=== PATIENT | female | born 1955 | race Caucasian/White ===

== ENCOUNTER 2017-10-19 16:57 | Emergency (ER) | payer OTHER ==
[~2017-10-19] VITALS: Ht 165.1 cm; Wt 90.0 kg
[2017-10-19 17:00] VITALS: Ht 165.1 cm; Wt 90.0 kg
[2017-10-19] MEDS ORDERED: SOD CHLORIDE 0.9% 1,000 ML IV STA (21:33)
[2017-10-19] MEDS ORDERED: morphine 4 MG/ML VIAL IV STA (21:33)
[2017-10-19] MEDS ORDERED: ONDANSETRON 4 MG INJ IV STA (21:33)
[2017-10-19 21:51] LABS: BASOPHIL # 0.1 10^3/ul (0.0-0.1); BASOPHILS % 1.1 % (0.0-2.0); EOSINOPHILS # 0.1 10^3/ul (0.0-0.5); EOSINOPHILS % 0.8 % (0.0-7.0); HEMOGLOBIN 16.2 g/dl (12.0-16.0); LYMPHOCYTES # 2.7 10^3/ul (0.8-2.9); LYMPHOCYTES % 36.7 % (15.0-51.0); MEAN CORPUSCULAR HEMOGLOBIN 28.6 pg (29.0-33.0); MEAN CORPUSCULAR HGB CONC 34.5 g/dl (32.0-37.0); MEAN CORPUSCULAR VOLUME 82.9 fl (82.0-101.0); MEAN PLATELET VOLUME 10.6 fl (7.4-10.4); MONOCYTE # 0.9 10^3/ul (0.3-0.9); MONOCYTES % 12.7 % (0.0-11.0); NEUTROPHIL # 3.5 10^3/ul (1.6-7.5); PLATELET COUNT 228 10^3/UL (140-415); RED BLOOD COUNT 5.67 10^6/ul (4.20-5.40); RED CELL DISTRIBUTION WIDTH 12.5 % (11.5-14.5); WHITE BLOOD COUNT 7.2 10^3/ul (4.8-10.8)
[2017-10-19 22:02] LABS: ADD UMIC YES; UR ASCORBIC ACID NEGATIVE (NEGATIVE); UR BACTERIA FEW /HPF (NONE SEEN); UR BILIRUBIN (Dip) NEGATIVE (NEGATIVE); UR BLOOD (Dip) 1+ mg/dL (NEGATIVE); UR CLARITY SLIGHTLY CLOUDY (CLEAR); UR COLOR YELLOW (YELLOW); UR GLUCOSE (Dip) 3+ mg/dL (NEGATIVE); UR KETONES (Dip) NEGATIVE (NEGATIVE); UR LEUKOCYTE ESTERASE (Dip) 1+ Leu/ul (NEGATIVE); UR NITRITE (Dip) NEGATIVE (NEGATIVE); UR RBC 6 /HPF (0-5); UR SPECIFIC GRAVITY (Dip) 1.029 (1.003-1.030); UR SQUAMOUS EPITHELIAL CELL FEW /HPF (FEW); UR TOTAL PROTEIN (Dip) 3+ mg/dl (NEGATIVE); UR UROBILINOGEN (Dip) NEGATIVE (NEGATIVE)
[2017-10-19 22:19] VITALS: TEMP 98.7
--- NOTE | 2017-10-19 22:32 | RADRPT ---
PROCEDURE: CT Abdomen and Pelvis without contrast. CLINICAL INDICATION: Right lower quadrant abdominal pain. TECHNIQUE: A CT scan of the abdomen and pelvis was performed without intravenous contrast. Sawyer l and sagittal reformatted images were generated. DICOM images are available. Images were reviewed o n a high-resolution PACS workstation. CTDIvol: 22.15 mGy. DLP: 1312.33 mGy-cm. One or more of the following dose reduction techniques were used: - Automated exposure control. - Adjustment of the mA and/or kV according to patient size. - Use of iterative reconstruction technique. COMPARISON: None. FINDINGS: The lung bases are clear. Evaluation of the abdominal and pelvic viscera is limited by the lack of oral and intravenous contra st. The liver is enlarged (22.0 cm) and diffusely hypodense, consistent with fatty infiltration. The ga llbladder is normal in appearance. The common bile duct is not dilated. The spleen is not enlarged. No pancreatic lesion is identified and there is no pancreatic ductal dilatation. There is a 1.9 cm r ight adrenal adenoma. The left adrenal gland is unremarkable. The kidneys are normal in size. There is mild symmetric perinephric fat stranding, probably age-rela adore. No hydronephrosis is seen. No urinary stone is identified. The small and large bowel are normal in caliber. There is no bowel wall thickening. A 4.2 x 4.7 cm c m lipoma is identified in the mid sigmoid colon. The appendix is normal. The urinary bladder is unremarkable. There are multiple calcified uterine fibroids. There is no adne xal mass. No lymphadenopathy is identified. There is no ascites. No pneumoperitoneum is seen. There are minima l arterial calcifications. No suspicious osseous lesion is idenitified. IMPRESSION: 1. No inflammation or lymphadenopathy. 2. No obstructive uropathy or urinary stone. 3. Normal appendix. 4. Hepatomegaly and fatty infiltration of the liver. 5. 1.9 cm right adrenal adenoma. 6. 4.7 cm lipoma in the mid sigmoid colon. 7. Multiple calcified uterine fibroids. RPTAT: HTAR .Cruz Lauren MD, MD Date Time Electronically viewed and signed by .Cruz Lauren MD, on 10/19/2017 22:32 .R/
[2017-10-19 22:33] LABS: ALBUMIN 3.8 g/dl (3.3-4.9); BILIRUBIN,INDIRECT 0.1 mg/dl (0-1.1); BILIRUBIN,TOTAL 0.1 mg/dl (0.2-1.3); CALCIUM 9.4 mg/dl (8.4-10.2); CREATININE 0.71 mg/dl (0.44-1.00); POTASSIUM 3.9 mmol/L (3.5-5.1); TOTAL PROTEIN 7.6 g/dl (6.1-8.1)
[2017-10-19] MEDS ORDERED: IBUP-1542 PO (23:04)
[2017-10-19] MEDS ORDERED: METF500T4 PO (23:04)
[2017-10-19] MEDS ORDERED: CEFTRIAXONE 1 GM/50 ML (PMX) 50 ML IVPB ONE ×2 (23:22→23:30)
[2017-10-19] MEDS ORDERED: SOD CHLORIDE 0.9% 1,000 ML IV ONE (23:30)
[2017-10-20] MEDS ORDERED: CIPR500T4 PO (01:08)
[2017-10-20] MEDS ORDERED: NITR-58 PO (01:08)
[2017-10-20] MEDS ORDERED: NAPR-688 PO (01:09)
[2017-10-20] MEDS ORDERED: ONDA4TAB11 PO (01:09)
[2017-10-20] MEDS ORDERED: HYDR-906 PO (01:09)
[2017-10-20] MEDS ORDERED: POLY17PO6 PO (01:17)
--- NOTE | 2017-10-20 01:17 | ERD ---
ER Documentation Chief Complaint Chief Complaint AP X 3 DAYS ROS All systems reviewed and are negative except as per history of present illness. Medications Home Meds Active Scripts Ondansetron (Zofran Odt) 4 Mg Tab.rapdis, 4 MG PO Q6 for NAUSEA AND/OR VOMITING , #10 Prov:TING NUNN DO 10/20/17 Hydrocodone/Acetaminophen (Alden 5-325 Tablet) 1 Each Tablet, 1 EACH PO Q6 for SEVERE PAIN LEVEL 7-10, #14 TAB Prov:TING NUNN DO 10/20/17 Naproxen* (Naproxen*) 500 Mg Tablet, 500 MG PO BID, #20 TAB Prov:TING NUNN DO 10/20/17 Nitrofurantoin Monohyd Macrocr* (Macrobid*) 100 Mg Capsr, 100 MG PO BID for 3 Days, CAP Prov:TING NUNN DO 10/20/17 Ciprofloxacin Hcl* (Ciprofloxacin Hcl*) 500 Mg Tablet, 500 MG PO BID for 7 Days , TAB Prov:TING NUNN 10/20/17 Reported Medications Ibuprofen* (Ibuprofen*) 600 Mg Tablet, 600 MG PO Q6, TAB 10/19/17 Metformin* (Glucophage*) 500 Mg Tab, 500 MG PO WITH BREAKFAST DINNE, #30 TAB 10/19/17 Allergies Allergies: Coded Allergies: No Known Allergy (Unverified , 10/19/17) PMhx/Soc History of Surgery: Yes ( section) Hx Cardiac Disorders: Yes (HTN) Hx Miscellaneous Medical Probl: Yes (high cholesterol, DMII) Hx Alcohol Use: No Hx Substance Use: No Hx Tobacco Use: No Smoking Status: Never smoker Physical Exam Vitals Vital Signs Date Time Temp Pulse Resp B/P Pulse Ox O2 Delivery O2 Flow Rate FiO2 10/19/17 22:19 98.7 84 20 187/86 98 Room Air 10/19/17 17:00 100.0 98 20 178/98 99 Physical Exam Const: [] Head: Atraumatic Eyes: Normal Conjunctiva ENT: Normal External Ears, Nose and Mouth. Neck: Full range of motion..~ No meningismus. Resp: Clear to auscultation bilaterally Cardio: Regular rate and rhythm, no murmurs Abd: Soft, non tender, non distended. Normal bowel sounds Skin: No petechiae or rashes Back: No midline or flank tenderness Ext: No cyanosis, or edema Neur: Awake and alert Psych: Normal Mood and Affect Result Diagram: 10/19/17209910/19/17 2100 Results 24 hrs Laboratory Tests Test 10/19/17 21:00 10/19/17 21:06 10/19/17 21:30 10/20/17 00:46 White Blood Count 7.210^3/ul Red Blood Count 5.6710^6/ul Hemoglobin 16.2g/dl Hematocrit 47.0% Mean Corpuscular Volume 82.9fl Mean Corpuscular Hemoglobin 28.6pg Mean Corpuscular Hemoglobin Concent 34.5g/dl Red Cell Distribution Width 12.5% Platelet Count 88442^3/UL Mean Platelet Volume 10.6fl Neutrophils % 48.0% Lymphocytes % 36.7% Monocytes % 12.7% Eosinophils % 0.8% Basophils % 1.1% Nucleated Red Blood Cells % 0.0/100WBC Neutrophils # 3.510^3/ul Lymphocytes # 2.710^3/ul Monocytes # 0.910^3/ul Eosinophils # 0.110^3/ul Basophils # 0.110^3/ul Nucleated Red Blood Cells # 0.010^3/ul Sodium Level 133mmol/L Potassium Level 3.9mmol/L Chloride Level 92mmol/L Carbon Dioxide Level 32mmol/L Anion Gap 13 Blood Urea Nitrogen 12mg/dl Creatinine 0.71mg/dl Glucose Level 373mg/dl Calcium Level 9.4mg/dl Total Bilirubin 0.1mg/dl Direct Bilirubin 0.00mg/dl Indirect Bilirubin 0.1mg/dl Aspartate Amino Transf (AST/SGOT) 27IU/L Alanine Aminotransferase (ALT/SGPT) 42IU/L Alkaline Phosphatase 77IU/L Total Protein 7.6g/dl Albumin 3.8g/dl Globulin 3.80g/dl Albumin/Globulin Ratio 1.00 Lipase 143U/L Bedside Glucose 329mg/dL 268mg/dL Urine Color YELLOW Urine Clarity SLIGHTLY CLOUDY Urine pH 6.0 Urine Specific [place] 1.029 Urine Ketones NEGATIVEmg/dL Urine Nitrite NEGATIVEmg/dL Urine Bilirubin NEGATIVEmg/dL Urine Urobilinogen NEGATIVEmg/dL Urine Leukocyte Esterase 1+Jennifer/ul Urine Microscopic RBC 6/HPF Urine Microscopic WBC 21/HPF Urine Squamous Epithelial Cells FEW/HPF Urine Bacteria FEW/HPF Urine Hemoglobin 1+mg/dL Urine Glucose 3+mg/dL Urine Total Protein 3+mg/dl Current Medications Medications (Trade) Dose Ordered Sig/Rita Route PRN Reason Start Time Stop Time Status Last Admin Dose Admin Sodium Chloride (NS) 1,000 ml @ 1,000 mls/hr Q1H STAT IV 10/19/17 21:33 10/19/17 22:32 DC 10/19/17 21:45 Morphine Sulfate (morphine) 4 mg ONCE STAT IV 10/19/17 21:33 10/19/17 21:34 DC 10/19/17 21:44 Ondansetron HCl 4 mg 4 mg ONCE STAT IV 10/19/17 21:33 10/19/17 21:34 DC 10/19/17 21:44 Ceftriaxone Sodium 50 ml @ 100 mls/hr ONCE ONCE IVPB 10/19/17 23:30 10/19/17 23:59 DC 10/19/17 23:49 Sodium Chloride 1,000 ml @ 1,000 mls/hr Q1H ONCE IV 10/19/17 23:30 10/20/17 00:29 DC 10/19/17 23:48 Ceftriaxone Sodium (Rocephin) 50 ml @ ud STK-MED ONCE IVPB 10/19/17 23:22 10/19/17 23:23 DC Procedures/MDM This 62-year-old female presents for lower abdominal pain worse in the right lower quadrant going on for the last 2 days. She woke up this morning and vomited and she has had nausea all day. Denies any vaginal symptoms. Does have diabetes which is usually controlled at home although sugars approaching 200 abnormal for her. Pain is likely secondary to urinary tract infection as well as uterine fibroids. Patient does not have pain in the distribution of her fatty liver. Has hyperglycemia likely accelerated secondary to traction. She was given a gram of Rocephin emergency room she was given 2 L of IV fluid after which her sugar was decreased without any insulin. She states that she would like to go home and that that sugar can be controlled with her home medicines no problems she does not want to stay in the hospital. She also has bilateral foot pain that she mentioned prior to discharge. Performed and examined this is consistent with plantar fasciitis. Omitted discharge her with naproxen as well as Alden for severe pain giving her Cipro and Macrobid for complicated UTI. Also states that she has constipation from time to time and I will give her some MiraLAX. Primary care follow-up in next couple of days with instructions to obtain a referral for a attending physician and possibly parking officer for her fibroids. CT abdomen pelvis interpretation: No appendicitis, fatty liver, uterine fibroids , no obstruction or free air, no fractures. Departure Diagnosis: Primary Impression: Fibroid, uterine Additional Impressions: Plantar fasciitis, bilateral UTI (urinary tract infection) Abdominal pain Fatty liver Hyperglycemia Condition: Stable Patient Instructions: Non-Alcoholic Fatty Liver Disease (NAFLD), Understanding Urinary Tract Infections (UTIs), Constipation (Adult), Plantar Fasciitis, Uterine Fibroids Additional Instructions: Call your primary care doctor TOMORROW for an appointment during the next 2-3 days. Get a referral for a attending physician in the next week. Alos you may want to see a parking officer about FIBROIDS. See the doctor sooner or return here if your condition worsens before your appointment time. TING NUNN DO Oct 20, 2017 01:17
[2017-10-20 01:25] VITALS: BP 176/84; PULSE 85; RESP 20
== END 2017-10-20 01:26 | disposition home or self-care (01) ==
LOC: E/R 16:57
DX: D25.9 Leiomyoma of uterus, unspecified (principal); M72.2 Plantar fascial fibromatosis; N39.0 Urinary tract infection, site not specified; K76.0 Fatty (change of) liver, not elsewhere classified; E11.65 Type 2 diabetes mellitus with hyperglycemia; I10 Essential (primary) hypertension; Z79.84 Long term (current) use of oral hypoglycemic drugs
CPT/HCPCS: 36415; 74176; 80053; 81001; 82962; 83690; 85025; 96374; 96375; J0696; J2270; J2405; J7030; Z7502

== ENCOUNTER 2018-06-29 09:12 | Emergency (ER) | END 2018-06-29 12:17 | disposition home or self-care (01) ==

== ENCOUNTER 2019-02-20 19:05 | Emergency (ER) | payer OTHER ==
[~2019-02-20] VITALS: Ht 157.5 cm; Wt 70.0 kg
[~2019-02-20 19:05] MED LIST: GABA600T PO; HYDR-3980 PO; METF-849 PO
[2019-02-20 19:13] VITALS: Ht 157.5 cm; Wt 70.0 kg
[2019-02-20] MEDS ORDERED: ASPIRIN 325 MG TAB PO STA (19:46)
[2019-02-20] MEDS ORDERED: INSULIN LISPRO 100 UNIT/ML VIAL SC STA (20:14)
[2019-02-20] MEDS ORDERED: FUROSEMIDE 40 MG INJ IV ONE (20:30)
[2019-02-20 22:18] VITALS: BP 177/81; PULSE 89; RESP 20
[2019-02-20] MEDS ORDERED: ONDANSETRON 4 MG INJ IV PRN (22:30)
[2019-02-20] MEDS ORDERED: ACETAMINOPHEN 325 MG TAB PO PRN (22:30)
[2019-02-20] MEDS ORDERED: morphine 4 MG/ML VIAL IV STA (22:34)
[2019-02-20] MEDS ORDERED: ONDANSETRON 4 MG INJ IV STA (22:34)
--- NOTE | 2019-02-20 22:51 | ERD ---
ER Documentation Chief Complaint Chief Complaint CHEST PAIN AND DIZZINESS X LAST NIGHT HPI This is a 63-year-old female with a history of insulin-dependent diabetes mellitus and hypertension. The patient presents to the emergency department with chest pain and dizziness that is been intermittent for 24 hours. She states she has no changes in vision. She denies a headache. She states the chest pressure is 8 out of 10 in intensity does radiate to her left arm but no radiation to her neck back or jaw. She also indicates she is been having swelling of her lower extremities. She has been put on Lasix by her primary care physician. She complains of mild cramping of her lower extremities. She denies any shortness of breath. She has had no recent travel. She denies tobacco use. ROS All systems reviewed and are negative except as per history of present illness. Medications Home Meds Active Scripts Gabapentin* (Neurontin*) 600 Mg Tablet, 600 MG PO BID, #60 TAB Prov:LEKKOS,APOSTOLOS A. DO 06/29/18 Hydrocodone/Acetaminophen (Dixon 10-325 Tablet) 1 Each Tablet, 1 TAB PO Q6H PRN for PAIN, #20 TAB Prov:LEKKOS,APOSTOLOS A. DO 06/29/18 Reported Medications Metformin* (Glucophage*) 500 Mg Tab, 500 MG PO WITH BREAKFAST DINNE, #30 TAB 10/19/17 Allergies Allergies: Coded Allergies: No Known Allergy (Unverified , 10/19/17) PMhx/Soc History of Surgery: Yes ( section) Anesthesia Reaction: No Hx Neurological Disorder: No Hx Respiratory Disorders: No Hx Cardiac Disorders: Yes (HTN) Hx Psychiatric Problems: No Hx Miscellaneous Medical Probl: Yes (high cholesterol, DMII) Hx Alcohol Use: No Hx Substance Use: No Hx Tobacco Use: No Smoking Status: Never smoker Physical Exam Vitals Vital Signs Date Temp Pulse Resp B/P (MAP) Pulse Ox O2 O2 Flow FiO2 Time Delivery Rate 02/20/19 97.8 89 20 177/81 96 Room Air 22:18 (113) 02/20/19 97.8 99 20 157/84 96 19:13 (108) Physical Exam Constitutional:Well-developed. Well-nourished. HEENT:Normocephalic. Atraumatic.Pupils were equal round reactive to light. Moist mucous membranes.No tonsillar exudates. Neck: No nuchal rigidity. No lymphadenopathy. No posterior cervical spine tenderness or step-offs. Respiratory: Not using accessory muscles of respiration.Lungs were clear to auscultation bilaterally. No rhonchi. No rales. No wheezing. Cardiovascular: Regular rate regular rhythm.No murmurs. No rubs were a ppreciated.S1, S2 normal. Distal pulses are palpable 2+ bilaterally. 2+ pitting edema the bilateral lower extremities GI: Abdomen was soft. Nontender. Non Distended. No pulsatile abdominal masses or bruits. No rebound. No guarding. Bowel sounds were present and normal. Muscle skeletal: Full range of motion of both the upper and lower extremities bilaterally.Normal muscle tone.No assymetrical calf tenderness or swelling. Skin: No petechia, no purpura. No lesions on the palms or the soles of the feet. No maculopapular rash. NEURO: Patient was alert, awake, orientated x3.No facial droop. Gait observed and normal with no ataxia.Speech had regular rate and rhythm. No focal neurological deficits. Result Diagram: 02/20/19193702/20/191937 Results 24 hrs Laboratory Tests Test 02/20/19 19:38 02/20/19 20:47 White Blood Count 11.2 10^3/ul Red Blood Count 5.22 10^6/ul Hemoglobin 14.5 g/dl Hematocrit 43.3 % Mean Corpuscular Volume 83.0 fl Mean Corpuscular Hemoglobin 27.8 pg Mean Corpuscular Hemoglobin Concent 33.5 g/dl Red Cell Distribution Width 12.7 % Platelet Count 268 10^3/UL Mean Platelet Volume 10.9 fl Immature Granulocytes % 0.400 % Neutrophils % 51.7 % Lymphocytes % 39.7 % Monocytes % 5.8 % Eosinophils % 1.6 % Basophils % 0.8 % Nucleated Red Blood Cells % 0.0 /100WBC Immature Granulocytes # 0.040 10^3/ul Neutrophils # 5.8 10^3/ul Lymphocytes # 4.4 10^3/ul Monocytes # 0.7 10^3/ul Eosinophils # 0.2 10^3/ul Basophils # 0.1 10^3/ul Nucleated Red Blood Cells # 0.0 10^3/ul Prothrombin Time 11.8 Sec Prothrombin Time Ratio 0.9 INR International Normalized Ratio 0.86 Activated Partial Thromboplast Time 23.6 Sec Sodium Level 133 mmol/L Potassium Level 4.4 mmol/L Chloride Level 98 mmol/L Carbon Dioxide Level 30 mmol/L Anion Gap 5 Blood Urea Nitrogen 24 mg/dl Creatinine 0.70 mg/dl Est Glomerular Filtrat Rate mL/min > 60 mL/min Glucose Level 414 mg/dl Calcium Level 9.8 mg/dl Total Bilirubin 0.0 mg/dl Direct Bilirubin 0.00 mg/dl Indirect Bilirubin 0.0 mg/dl Aspartate Amino Transf (AST/SGOT) 16 IU/L Alanine Aminotransferase (ALT/SGPT) 12 IU/L Alkaline Phosphatase 64 IU/L Creatine Kinase 64 IU/L Creatine Kinase Index 1.5 Creatinine Kinase MB (Mass) 0.98 ng/ml Troponin I < 0.012 ng/ml B-Type Natriuretic Peptide 403 PG/ML Total Protein 6.3 g/dl Albumin 3.1 g/dl Globulin 3.20 g/dl Albumin/Globulin Ratio 0.96 Lipase 147 U/L Bedside Glucose 350 mg/dL Current Medications Medications Dose Sig/Rita Start Time Status Last (Trade) Ordered Route PRN Stop Time Admin Dose Reason Admin Aspirin 325 mg ONCE STAT 02/20/19 DC 02/20/19 (Aspirin) PO 19:46 19:53 02/20/19 19:47 Furosemide 40 mg ONCE ONCE 02/20/19 DC 02/20/19 (Lasix) IV 20:30 20:50 02/20/19 20:31 Insulin 10 unit ONCE STAT 02/20/19 DC 02/20/19 Human SC 20:14 20:49 Lispro 02/20/19 20:16 (Humalog) Ondansetron 4 mg ER BRIDGE 02/20/19 HCl (Zofran PRN IV 22:30 Inj) NAUSEA/VOMITI 02/21/19 22:29 NG 650 mg ER BRIDGE 02/20/19 Acetaminophen PRN PO 22:30 (Tylenol .MILD PAIN 02/21/19 22:29 Tab) 1-3 OR TEMP Morphine 4 mg ONCE STAT 02/20/19 DC Sulfate IV 22:34 (morphine) 02/20/19 22:35 Ondansetron 4 mg ONCE STAT 02/20/19 DC HCl (Zofran IV 22:34 Inj) 02/20/19 22:35 Procedures/MDM The patient presented to the emergency department with chest pain. My clinical evaluation and workup was to distinguish minor causes of chest pain from acute life threatening conditions such as myocardial infarction, pulmonary embolism, aortic dissection, esophageal rupture, cardiac tamponade. The patient was placed on a executive pastry chef and continuous pulse oximetry. IV access established by nursing staff. The patient was given 325 mg of aspirin p.o. 12 Lead EKG tracing ordered and reviewed by myself showed: Normal sinus rhythm of 87 bpm and no arrhythmia. NC interval normal. QRS duration normal. No ST segment elevation No ST segment depression. No changes consistent with acute ischemia. Obtain venous duplex ultrasound of the bilateral lower extremities there is no evidence of DVT. Chest radiograph on reviewed myself showed no infiltrates no pneumothorax or pleural effusions there was mild cardiomegaly I did CT scan the patient's head and she continued to complain of dizziness and lightheadedness and generalized weakness. She had no focal neurological deficits on physical exam. NIH scale was 0. CT scan of the head on reviewed by myself the radiologist indicate the followin. No acute intracranial hemorrhage nor mass effect. 2. Mild - moderate presumed chronic small vessel ischemic changes with mild central atrophy. MRI brain has improved sensitivity for acute infarct or subtle lesion. I did feel the patient required admission for serial twelve-lead EKG tracings and cardiac set of enzymes with the patient states she would leave AGAINST MEDICAL ADVICE. The patient was a medical capacity to make her own decisions. Departure Diagnosis: Primary Impression: Chest pain Chest pain type: unspecified Qualified Codes: R07.9 - Chest pain, unspecified Additional Impressions: Hyperglycemia without ketosis Dizziness Peripheral edema Condition: Fair NIKO BAXTER MD Feb 20, 2019 22:51
== END 2019-02-20 23:20 | disposition left against medical advice (07) ==
LOC: E/R 19:05 → CANBEDREQ 02-21 19:23
DX: E11.65 Type 2 diabetes mellitus with hyperglycemia (principal); R42 Dizziness and giddiness; R60.9 Edema, unspecified; I10 Essential (primary) hypertension; Z79.84 Long term (current) use of oral hypoglycemic drugs
CPT/HCPCS: 70450; 71045; 80053; 82550; 82553; 82962; 83690; 83880; 84484; 85025; 85610; 85730; 93005; 93970; 96372; 96374; J1815; J1940; J2270; Z7502; Z7610

== ENCOUNTER 2019-05-31 03:11 | Inpatient (IN) | payer OTHER ==
[~2019-05-31] VITALS: Ht 154.9 cm; Wt 107.2 kg
[~2019-05-31 03:11] MED LIST changes: +ATOR40TA68 PO; +BENA40TA56 PO; +BISA-34 PO; +ENAL20TA PO; +ESCI10TA48 PO; +FURO40TA4 PO; +GEMF600T8 PO; +GLIM4TAB PO; +HYDR-3029 PO; +INSU100I33 SC; +MELO15TA30 PO; +METF100010 PO; +NIFE30TA23 PO; +OMEP40CA6 PO; +PIOG45TA64 PO; +RANI150T5 PO; +ZOLP5TAB7 PO
[2019-05-31] MEDS ORDERED: ONDANSETRON 4 MG INJ IV PRN (07:00)
[2019-05-31] MEDS ORDERED: ACETAMINOPHEN 325 MG TAB PO PRN ×2 (07:00→12:30)
--- NOTE | 2019-05-31 07:09 | ERD ---
ER Documentation Chief Complaint Chief Complaint STERNAL CHEST PRESSURE X TONIGHT. HPI This is a 64-year-old female with a past medical history of hypertension, hyperlipidemia, diabetes, CHF who is presenting for chest pain. Approximately 2 hours prior to arrival, the patient endorses mid substernal nonradiating nonexertional moderate pressure-like chest pain with associated shortness of breath, nausea without vomiting and lightheadedness. She called an ambulance to transport her to the emergency department. She was given nitroglycerin and aspirin prior to arrival. The patient does endorse improvement of her pain after receiving these medications.The patient does not endorse any other alleviating or exacerbating factors. The patient does not endorse a history of heart attack or stroke in the past. The patient does also complain of progressive worsening bilateral lower extremity edema and pain. This is been ongoing for the last 2 to 3 months. The patient denies feeling sick recently. The patient denies fever or chills. The patient has had no headache or vision changes. The patient denies abdominal pain. The patient denies changes to bowel movements or urination. The patient has had no focal deficits. The patient has had no weakness or numbness or tingling to the face or extremities. ROS All systems reviewed and are negative except as per history of present illness. Medications Home Meds Reported Medications Insulin Glargine,Hum.rec.anlog (Basaglar Kwikpen U-100) 100 Unit/1 Ml Insuln.pen, 20 UNIT SC QAM, EA 05/31/19 Escitalopram Oxalate* (Escitalopram Oxalate*) 10 Mg Tablet, 10 MG PO DAILY, #30 TAB 05/31/19 Omeprazole* (Omeprazole*) 40 Mg Capsule.dr, 40 MG PO DAILY, #30 CAP 05/31/19 Pioglitazone Hcl* (Pioglitazone Hcl*) 45 Mg Tablet, 45 MG PO DAILY, TAB 05/31/19 Metformin Hcl* (Metformin Hcl*) 1,000 Mg Tablet, 1000 MG PO WITH BREAKFAST DINNE, #60 TAB 05/31/19 Meloxicam* (Mobic*) 15 Mg Tablet, 15 MG PO DAILY, #30 TAB 05/31/19 Glimepiride* (Glimepiride*) 4 Mg Tablet, 4 MG PO WITH BREAKFAST DINNE, TAB 05/31/19 Zolpidem Tartrate* (Zolpidem Tartrate*) 5 Mg Tablet, 5 MG PO QHS PRN for INSOMNIA, #30 TAB 05/31/19 Benazepril Hcl* (Benazepril Hcl*) 40 Mg Tablet, 40 MG PO DAILY, #30 TAB 05/31/19 Ranitidine Hcl* (Ranitidine Hcl*) 150 Mg Tablet, 150 MG PO Q12, #60 TAB 05/31/19 Furosemide* (Furosemide*) 40 Mg Tablet, 40 MG PO DAILY, TAB 05/31/19 Gemfibrozil* (Gemfibrozil*) 600 Mg Tablet, 600 MG PO BID, TAB 05/31/19 Hydroxyzine Hcl* (Hydroxyzine Hcl*) 10 Mg Tablet, 10 MG PO Q12 PRN for ITCHING, #30 TAB 05/31/19 Bisacodyl (Ducodyl) 5 Mg Tablet.dr, 5 MG PO BID 05/31/19 Atorvastatin* (Atorvastatin*) 40 Mg Tablet, 40 MG PO QHS, #30 TAB 05/31/19 Nifedipine* (Nifedipine ER*) 30 Mg Tablet.sa, 30 MG PO BID, TAB.SA 05/31/19 Enalapril Maleate* (Enalapril Maleate*) 20 Mg Tablet, 20 MG PO DAILY, TAB 05/31/19 Discontinued Reported Medications Metformin* (Glucophage*) 500 Mg Tab, 500 MG PO WITH BREAKFAST DINNE, #30 TAB 10/19/17 Discontinued Scripts Gabapentin* (Neurontin*) 600 Mg Tablet, 600 MG PO BID, #60 TAB Prov:LEKKOS,APOSTOLOS A. DO 06/29/18 Hydrocodone/Acetaminophen ([place] 10-325 Tablet) 1 Each Tablet, 1 TAB PO Q6H PRN for PAIN, #20 TAB Prov:LEKKOS,APOSTOLOS A. DO 06/29/18 Allergies Allergies: Coded Allergies: No Known Allergy (Unverified , 05/31/19) PMhx/Soc History of Surgery: Yes ( section) Anesthesia Reaction: No Hx Neurological Disorder: No Hx Respiratory Disorders: No Hx Cardiac Disorders: Yes (Hypertension, hyperlipidemia, diabetes, CHF) Hx Psychiatric Problems: No Hx Miscellaneous Medical Probl: No Hx Alcohol Use: No Hx Substance Use: No Hx Tobacco Use: No Smoking Status: Never smoker FmHx Family History: No diabetes Physical Exam Vitals Vital Signs Date Temp Pulse Resp B/P (MAP) Pulse Ox O2 O2 Flow FiO2 Time Delivery Rate 05/31/19 83 19 161/100 96 Room Air 07:00 (120) 05/31/19 68 20 146/76 96 Room Air 04:30 (99) 05/31/19 97.0 82 20 141/73 93 03:13 (95) Physical Exam Const: No acute distress Head: Atraumatic Eyes: Normal Conjunctiva ENT: Normal External Ears, Nose and Mouth. Neck: Full range of motion. No meningismus. Resp: Clear to auscultation bilaterally Cardio: Regular rate and rhythm, no murmurs Abd: Soft, non tender, non distended. Normal bowel sounds Skin: No petechiae or rashes Back: No midline or flank tenderness Ext: No cyanosis. 2+ bilateral lower extremity edema. Neur: Awake and alert Psych: Normal Mood and Affect Result Diagram: 05/31/19 0336 05/31/19 0336 Results 24 hrs Laboratory Tests Test 05/31/19 03:36 White Blood Count 10.8 10^3/ul Red Blood Count 4.33 10^6/ul Hemoglobin 12.2 g/dl Hematocrit 36.8 % Mean Corpuscular Volume 85.0 fl Mean Corpuscular Hemoglobin 28.2 pg Mean Corpuscular Hemoglobin Concent 33.2 g/dl Red Cell Distribution Width 13.1 % Platelet Count 286 10^3/UL Mean Platelet Volume 11.2 fl Immature Granulocytes % 0.600 % Neutrophils % 48.5 % Lymphocytes % 41.1 % Monocytes % 7.1 % Eosinophils % 1.8 % Basophils % 0.9 % Nucleated Red Blood Cells % 0.0 /100WBC Immature Granulocytes # 0.070 10^3/ul Neutrophils # 5.2 10^3/ul Lymphocytes # 4.4 10^3/ul Monocytes # 0.8 10^3/ul Eosinophils # 0.2 10^3/ul Basophils # 0.1 10^3/ul Nucleated Red Blood Cells # 0.0 10^3/ul Sodium Level 137 mmol/L Potassium Level 4.8 mmol/L Chloride Level 104 mmol/L Carbon Dioxide Level 27 mmol/L Anion Gap 6 Blood Urea Nitrogen 31 mg/dl Creatinine 0.99 mg/dl Est Glomerular Filtrat Rate mL/min 56 mL/min Glucose Level 319 mg/dl Calcium Level 9.2 mg/dl Troponin I 0.525 ng/ml B-Type Natriuretic Peptide 432 PG/ML Current Medications Medications Dose Sig/Rita Start Time Status Last (Trade) Ordered Route PRN Stop Time Admin Dose Reason Admin Ondansetron 4 mg ER BRIDGE 05/31/19 DC HCl (Zofran PRN IV 07:00 05/31/19 Inj) NAUSEA/VOMITI 15:54 NG 650 mg ER BRIDGE 05/31/19 DC Acetaminophen PRN PO 07:00 05/31/19 (Tylenol .MILD PAIN 15:54 Tab) 1-3 OR TEMP Procedures/MDM MDM The patient's presentation warrants further investigation. Previous medical records, if available, were reviewed. LABS The patient's laboratory testing was obtained and reviewed. No emergent treatment was required unless described below. CBC: No E/o systemic infection or severe anemia or thrombocytopenia Chemistry: Elevated BUN, concerning for possible intravascular depletion due to third spacing in the setting of CHF. No E/o severe acidosis or alkalosis or renal failure. Hyperglycemia without diabetic ketoacidosis Troponin: E/o acute ischemia BNP: Mildly elevated in an indeterminate range, likely E/o chronic heart failure EKG EKG read by me: Rate/Rhythm: Regular rate and rhythm at a rate of 81 bpm Intervals: Normal [place]: Normal Impression: No evidence of acute ischemia or arrhythmia IMAGING Imaging and Radiology interpretation reviewed. CXR FINDINGS: The heart is borderline enlarged. Mild pulmonary vascular congestion. Calcific atherosclerosis of the aorta. Minimal patchy density the bases felt to be due to hypoventilation and atelectasis. Basilar acute infiltrates felt to be unlikely. Remainder lungs are clear. No evidence of pleural effusions and pneumothorax. IMPRESSION: 1. Hypoventilatory chest. 2. Borderline cardiomegaly with mild pulmonary vascular congestion. 3. Minimal patchy density at the lung bases likely all due to technique and atelectasis. Basilar acute infiltrates felt to be unlikely. Recommend clinical correlation. Electronically viewed and signed by Physician Dominik on 05/31/2019 04:10 TREATMENT/DISPOSITION The patient presents for chest pain. While the patient's EKG is unremarkable, the patient's troponin is elevated at 0.5. I do suspect cardiac ischemia, and I am concerned about the possibility of an NSTEMI. The patient was already given aspirin and nitro prior to arrival with improvement of her pain. The patient will likely require anticoagulation therapy in the hospital. The patient will also require cardiology consultation in the hospital. I do not feel the patient requires an emergent catheterization, but if her serial troponins are increasing, the patient may benefit from catheterization at a later date. There is evidence of mild central vascular congestion on the x-ray. The patient's BNP is mildly elevated. The patient has a history of heart failure and there is evidence of progressive exacerbated heart failure today. The patient is short of breath and has associated bilateral lower extremity edema. The patient will require diuresis in the hospital. The patient's chest xray also demonstrates atelectasis. Her symptoms are not consistent with pneumonia. It does not reveal pneumothorax or pleural effusions. The patient does not have a widened mediastinum and does not have signs or symptoms concerning for thoracic aortic aneurysm or dissection. The patient does not have pneumomediastinum or signs concerning for esophageal tear or rupture. The patient has no clinical or radiographic signs of pericardial effusion or tamponade. The patient does not have pneumoperitoneum and I have decreased suspicion of viscus perforation as possible referred pain. The patient does not have a diagnosis of COPD and is not wheezing today. The patient is not tachypneic or hypoxic. The patient is breathing comfortably and without pleuritic pain. The patient is not on hormonal therapy. The patient has no history of clotting or bleeding disorders. The patient has no calf tenderness. The patient has had no hemoptysis. I have decreased suspicion for PE. ADMISSION At this time, I feel that the patient requires admission for further evaluation and management. The patient will be admitted to Dr. Oliver in accordance with the patient's insurance. The patient was accepted to telemetry at 7AM on 05/31/2019. Cardiology will be consulted in the hospital. CRITICAL CARE NOTE Time: 31 minutes excluding all billable procedures. Treatments/Evaluations: The patient was at risk of hemodynamic compromise. Timing of critical care involved close serial monitoring, evaluation of the patient's medical record including previous records & current laboratory/imaging studies, potential interventions for prevention of hemodynamic/ cardiopulmonary/ neurologic compromise, maintaining tight fluid balance, and any discussions with the family and/or consultants regarding the patient's status and prognosis. DISCLAIMER Inadvertent spelling and grammatical errors are likely due to EHR/dictation software use and do not reflect on the overall quality of patient care. Note that the electronic time recorded on this note does not necessarily reflect the actual time of the patient encounter. Departure Diagnosis: Primary Impression: NSTEMI (non-ST elevated myocardial infarction) Additional Impressions: Chest pain Chest pain type: unspecified Qualified Codes: R07.9 - Chest pain, unspecified CHF (congestive heart failure) Heart failure type: unspecified Heart failure chronicity: unspecified Qualified Codes: I50.9 - Heart failure, unspecified Bilateral lower extremity edema Hyperglycemia Elevated BUN Intravascular volume depletion Condition: Serious LUIS A PHILIP MD May 31, 2019 07:09
[2019-05-31] MEDS ORDERED: ONDANSETRON (ODT) 4 MG TAB ODT STA (09:19)
[2019-05-31] MEDS ORDERED: HYDROCODONE/APAP (10/325) TAB PO ONE (09:30)
[2019-05-31] MEDS ORDERED: DICYCLOMINE 10 MG CAP PO ONE (09:30)
--- NOTE | 2019-05-31 12:26 | QN ---
Documentation Comment PT SEEN AND EXAMINED FELIX SAMUEL MD May 31, 2019 12:26
[2019-05-31] MEDS ORDERED: DOCUSATE SODIUM 100 MG CAP PO PRN (12:30)
[2019-05-31] MEDS ORDERED: BISACODYL (EC) 5 MG TAB PO PRN (12:30)
[2019-05-31] MEDS ORDERED: MAGNESIUM HYDROXIDE 30ML CUP PO PRN (12:30)
[2019-05-31] MEDS ORDERED: ONDANSETRON 4 MG TAB PO PRN (12:30)
[2019-05-31] MEDS ORDERED: FUROSEMIDE 20 MG INJ IV ONE (14:00)
[2019-05-31] MEDS ORDERED: NITROGLYCERIN (SL) 0.4 MG TAB SL PRN (14:00)
[2019-05-31] MEDS ORDERED: ASPIRIN 81 MG TAB PO ONE (14:00)
[2019-05-31] MEDS ORDERED: FUROSEMIDE 40 MG TAB PO SCH (14:00)
[2019-05-31] MEDS ORDERED: GLUCOSE GEL 15 GRAM TUBE BUCCAL PRN (14:30)
[2019-05-31] MEDS ORDERED: PIOGLITAZONE 45 MG TAB PO SCH (14:30)
[2019-05-31] MEDS ORDERED: GLUCOSE GEL 15 GRAM TUBE PO PRN ×2 (14:30)
[2019-05-31] MEDS ORDERED: GLUCAGON 1 MG INJ IM PRN (14:30)
[2019-05-31] MEDS ORDERED: DEXTROSE 50% 50 ML SYRINGE IV PRN ×2 (14:30)
[2019-05-31] MEDS: BENAZEPRIL 40 MG TAB PO SCH (14:39)
[2019-05-31] MEDS: NIFEdipine (XL) 30 MG TAB PO SCH ×2 (14:39→23:00)
[2019-05-31] MEDS: ENOXAPARIN 60 MG/0.6 ML SYG SC SCH ×2 (14:40→23:00)
[2019-05-31 15:45] VITALS: BP 146/106; PULSE 73; RESP 20; Ht 154.9 cm; Wt 107.2 kg
[2019-05-31] MEDS: ACCU-CHEK XX SCH ×2 (17:25→22:26)
[2019-05-31] MEDS ORDERED: ACCU-CHEK XX SCH (17:30)
[2019-05-31] MEDS: PIOGLITAZONE 15 MG TAB PO SCH (17:30)
[2019-05-31] MEDS ORDERED: NA PHOSPHATE/BIPHOS 133 ML ENEMA PR PRN (17:30)
[2019-05-31] MEDS ORDERED: GLIMEPIRIDE 4 MG TAB PO SCH (18:00)
[2019-05-31] MEDS: GEMFIBROZIL 600 MG TAB PO SCH ×2 (18:44→20:49)
[2019-05-31] MEDS: INSULIN ASPART [NOVOLOG] 3 ML PEN SC SCH ×2 (18:51→22:23)
[2019-05-31] MEDS ORDERED: INSULIN GLARGINE [LANTus] (100 UNITS/ML) SYG SC SCH (20:00)
[2019-05-31 20:05] VITALS: BP 151/78; PULSE 74; RESP 18
[2019-05-31] MEDS: FAMOTIDINE 20 MG INJ IV SCH (20:48)
[2019-05-31] MEDS: METOPROLOL 25 MG TAB PO SCH (20:49)
[2019-05-31] MEDS ORDERED: ATORVASTATIN 40 MG TAB PO SCH (21:00)
[2019-05-31 23:08] VITALS: BP 127/61; PULSE 87; RESP 18
[2019-06-01] MEDS ORDERED: ACCU-CHEK XX SCH (02:00)
--- NOTE | 2019-06-01 03:08 | CONS ---
DATE OF ADMISSION: 05/31/2019 DATE OF CONSULTATION: 05/31/2019 REASON FOR CONSULTATION: Chest pain, positive troponin consistent with non-ST elevation myocardial i nfarction. REQUESTING PHYSICIAN: Aparna Renteria MD HISTORY OF PRESENT ILLNESS: Ms. Carnes is a 64-year-old female with a history of diabetes jesús litus, hypertension, congestive heart failure who presented with onset of substernal chest pain, desc ribed a chest pressure on the night prior to admit. Upon arrival in the emergency department, temper ature 97, blood pressure 140/73, pulse 82, respiratory rate 20, sat 90%. The patient's labs revealed white count 10.8, hemoglobin 12.2, platelet count of 286, sodium 137, potassium 4.8, creatinine 0.9, BUN 31. Troponin positive at 0.525. BNP of 432, glucose of 319. The patient underwent a chest x-r ay revealing hypoventilatory chest, borderline cardiomegaly with mild pulmonary vascular congestion, minimal opacities in the lung bases. The patient's electrocardiogram reveals sinus rhythm, rate 81, with nonsignificant findings. The patient has been treated with a dose of enalapril, Zofran, [place] a nd awaits admit to the hospital at this time. PAST MEDICAL HISTORY: As above in HPI. MEDICATIONS CURRENTLY IN HOSPITAL: 1. Lexapro. 2. Pepcid 20 mg IV q.12. 3. Lipitor 40 mg at bedtime. 4. Lantus. 5. Amaryl. 6. Benazepril 40 mg daily. 7. Lasix 40 mg daily. 8. Lopid 600 mg b.i.d. 9. Procardia 30 mg b.i.d. 10. Pioglitazone 40 mg daily. ALLERGIES: NO KNOWN DRUG ALLERGIES. SOCIAL HISTORY: No current tobacco, ETOH or illicit drug use. FAMILY HISTORY: No history of sudden cardiac or early CAD. REVIEW OF SYSTEMS: As above in HPI. CONSTITUTIONAL: No fevers or chills. PULMONARY: No current shortness of breath. CARDIOVASCULAR: Intermittent chest pain. GASTROINTESTINAL: No vomiting. GENITOURINARY: No hematuria. MUSCULOSKELETAL: Degenerative joint disease. PSYCHIATRIC: The patient denies depression. NEUROLOGIC: No documented history of CVA. PHYSICAL EXAMINATION: VITAL SIGNS: Temperature of 97, blood pressure most recently 130/78, pulse 60, respiratory rate 18, sat 95%. GENERAL: The patient is alert, awake, complaining of intermittent substernal chest pain. NECK: JVP approximately 8 cm water. CHEST: Fair air movement throughout. HEART: Regular rate and rhythm. Normal S1, S2, I/ systolic murmur, nondisplaced PMI. ABDOMEN: Obese, soft. EXTREMITIES: No significant pitting edema, 1+ pulses bilaterally in posterior tibial. LABORATORY DATA: As above in HPI. No further labs for my review at this time. IMAGING STUDIES: As above in HPI. No further imaging studies for my review at this time. ECG: As above in HPI. No further electrocardiograms for my review at this time. IMPRESSION: 1. Positive troponin consistent with non-ST elevation myocardial infarction secondary to chest pain. 2. Chest pain secondary to #1. 3. Abnormal electrocardiogram with nonsignificant findings. 4. Hypertension. 5. Dyslipidemia. 6. Diabetes mellitus. 7. Congestive heart failure by chest x-ray, question of systolic versus diastolic, likely acute on c hronic. 8. Uncontrolled blood sugars. RECOMMENDATIONS: 1. At this time, the patient is awaiting admit to telemetry floor. 2. Would place the patient on aspirin and Lovenox or heparin at this time for treatment of non-ST-el evation myocardial infarction. 3. Continue the patient's current antihypertensives with benazepril, Procardia and will add beta blo cker in the setting of positive troponins. 4. Check a 2D echo for this patient's ejection fraction, wall motion or rule out any major abnormali ties. 5. Give patient gentle Lasix diuresis, following strict I's and O's, creatinine to grade diuresis cl osely. 6. Continue to trend the patient's cardiac enzymes, assess for any significant ongoing cardiac damag e and, and given the patient's positive cardiac enzymes, I believe this patient will benefit from fur ther inpatient assessment of her coronary vasculature, and thus, we placed her in for cardiac cathete rization to take place first thing tomorrow morning. Thank you for allowing me to take part in the care of this patient. I will continue to follow very c losely with you with recommendations to be made as the patient progresses through her inpatient hospi manuel clinical course. Dictated By: EMILIA ROSE/ELAINA Conf#: [id number] [facility]#: [id number] CC: ANDRZEJ HARPER MD; APARNA RENTERIA;*End*
[2019-06-01 03:55] VITALS: BP 162/71; PULSE 89; RESP 18
--- NOTE | 2019-06-01 04:11 | HP ---
DATE OF ADMISSION: 05/31/2019 REASON FOR ADMISSION: Chest pain. HISTORY OF PRESENT ILLNESS: This is a 64-year-old female with a past medical history of hypertension, diabetes, hyperlipidemia, CHF, presented to the emergency department complaining of chest pain since last night. According to the patient, last night, when she was sleeping, all of a sudden, she noticed left-sided chest pain. She thought that it was gas pain; however, the pain was persistent and she came to the emergency department for further evaluation. The patient said that she has been very gassy. She was given nitroglycerin and aspirin prior to arrival. According to the patient, she also has been having worsening lower extremity edema for the past few months and has been having decreased exercise tolerance. Denies any cough. Denies any fevers and chills. Denies any hematemesis, any melena, any blood per rectum. Denies any dizziness or any episodes of syncope. On arrival to ED, temperature showed 97.0, pulse 82, respirations 20, blood pressure 141/73, saturating 93%. BUN of 31, creatinine 0.99. White count of 10.8, hemoglobin 12.2. EKG showed no acute ST- T wave changes. BNP was mildly elevated to 432. Troponin was 0.525. Chest x- ray showed hypoventilatory chest, borderline cardiomegaly with mild pulmonary vascular congestion, and the patient received aspirin, nitroglycerin, Zofran and Bentyl and was admitted for further management. PAST MEDICAL HISTORY: 1. Diabetes, type 2, for many years. 2. Hypertension. 3. Hyperlipidemia. 4. Hypercholesterolemia. 5. Obesity. 6. Depression. 7. Insomnia. 8. Constipation. ALLERGIES: NONE. PAST SURGICAL HISTORY: . MEDICATIONS: Taking at home: 1. Atorvastatin 40. 2. Benazepril 40. 3. Gemfibrozil 600 b.i.d. 4. IMDUR 30 b.i.d. 5. Lexapro 10. 6. Hydroxyzine p.r.n. itching. 7. Meloxicam 15. 8. Zolpidem 5. 9. Lasix 40. 10. Bisacodyl. 11. Omeprazole. 12. Ranitidine 150. 13. GLIPIZIDE_ 4 mg p.o. with breakfast and dinner. 14. Insulin 20 subcutaneous a.m. 15. Metformin 1000 with breakfast and dinner. 16. Pioglitazone 45. SOCIAL HISTORY: Denies any history of smoking, alcohol or any drug use. For the last few months, the patient has been very less functional. She lives with her friend. FAMILY HISTORY: No history of heart disease. REVIEW OF SYSTEMS: The patient complains of gas-like pain, chest pain. The patient has been having decreased exercise tolerance and worsening bilateral lower extremity edema. Denies any headache, any blurry vision. Denies any nausea or vomiting, any fevers, chills. Denies any hematemesis, any melena. Denies any focal neurological deficits. PHYSICAL EXAMINATION: VITAL SIGNS: Currently, blood pressure 138/78, afebrile, pulse 66, respirations 18. GENERAL: The patient is morbidly obese. She is able to speak full sentences. She does not appear to be in any acute distress. HEENT: Pupils equal, round, reactive to light. NECK: JVD appreciated. HEART: Regular rate and rhythm. LUNGS: Decreased breath sounds bilaterally. ABDOMEN: Obese. Some abdominal wall edema. EXTREMITIES: 2 to 3+ edema. NEUROLOGIC: Awake, alert, oriented. Motor strength 5/5 in bilateral upper and lower extremities. Sensation intact. Reflexes 1+. DIAGNOSTIC DATA: White count 10.8, hemoglobin 12.2, platelet count 286, BUN 31, creatinine 0.99. EKG does not show any acute ST or T wave changes. BNP was mildly elevated. Troponin 0.5. Chest x-ray shows some mild CHF. ASSESSMENT AND PLAN: This is a 64-year-old female who presented with: 1. Chest pain with elevated troponin, likely secondary to non-ST elevation myocardial infarction. 2. Dyspnea on exertion, bilateral lower extremity edema, likely secondary to congestive heart failure exacerbation. 3. Diabetes, uncontrolled. 4. Hypertension, uncontrolled. 5. Hyperlipidemia. 6. Elevated BNP, assess for congestive heart failure. 7. Depression. 8. Rule out sleep apnea. PLAN: At this period of time, [facility] The patient will be continued on aspirin, statin, beta ross. The patient will have strict diabetic control. We will check lipid panel, HbA1c. The patient will be on insulin. The patient will also be started on IV heparin. Cardiology will be consulted and the patient will likely need an angiogram. Further treatment will depend on the patient's hospitalization course. The patient will also be continued on IV Lasix. Dictated By: FELIX DEUTSCH/ELAINA Conf#: [id number] [facility]#: [id number] CC: ANDRZEJ HARPER MD;*EndCC* MTDD
[2019-06-01 07:23] VITALS: BP 164/77; PULSE 94; RESP 20
[2019-06-01] MEDS: ACCU-CHEK XX SCH ×2 (07:25→11:20)
[2019-06-01] MEDS ORDERED: DIPHENHYDRAMINE 50 MG CAP PO ONE (08:00)
[2019-06-01] MEDS ORDERED: DIAZEPAM 5 MG TAB PO ONE (08:00)
[2019-06-01] MEDS: FAMOTIDINE 20 MG INJ IV SCH (08:28)
[2019-06-01] MEDS: NIFEdipine (XL) 30 MG TAB PO SCH (08:30)
[2019-06-01] MEDS ORDERED: ASPIRIN 81 MG TAB PO SCH (09:00)
[2019-06-01] MEDS ORDERED: FUROSEMIDE 20 MG INJ IV SCH (09:00)
[2019-06-01] MEDS: METOPROLOL 25 MG TAB PO SCH (09:00)
[2019-06-01] MEDS: PIOGLITAZONE 15 MG TAB PO SCH (09:00)
[2019-06-01] MEDS ORDERED: ENALAPRIL 20 MG TAB PO SCH (09:00)
[2019-06-01] MEDS: GEMFIBROZIL 600 MG TAB PO SCH (09:00)
[2019-06-01] MEDS: BENAZEPRIL 40 MG TAB PO SCH (09:00)
[2019-06-01] MEDS ORDERED: ESCITALOPRAM 10 MG TAB PO SCH (09:00)
[2019-06-01] MEDS: ENOXAPARIN 60 MG/0.6 ML SYG SC SCH (09:01)
[2019-06-01] MEDS: INSULIN ASPART [NOVOLOG] 3 ML PEN SC SCH ×2 (09:01→12:56)
--- NOTE | 2019-06-01 11:16 | EN ---
Date/Time of Note Date/Time of Note DATE: 06/01/19 TIME: 11:11 Event Note Cardiology Cardiology Event Note Patient was brought down to cathlab to undergo scheduled left heart catheterization to evaluate and treat cornary vasculature secondary to NSTEMI patient is actively suffering. Upon arrival to cathlab patient stated that she did not want to undergo left heart catheterization at this time as wanted to wait for her son to arrive from [facility], who is a physician, before undergoing any further testing, evaluation or treatment. I explained to the patient that she was at risk for ongoing chest pain, development of cardiac arrhythmias, congestive heart failurem, and even . Patient stated that she understood this and still refused to undergo LHC and thus the case was cancelled at this time. EMILIA CASTAÑEDA Jun 01, 2019 11:16
--- NOTE | 2019-06-01 11:26 | CONS ---
Assessment/Plan Assessment/Plan Hospital Course (Demo Recall) IMPRESSION: 1. Positive troponin consistent with non-ST elevation myocardial infarction secondary to chest pain. 2. Chest pain secondary to #1. 3. Abnormal electrocardiogram with nonsignificant findings. 4. Hypertension. 5. Dyslipidemia. 6. Diabetes mellitus. 7. Congestive heart failure by chest x-ray, question of systolic versus diastolic, likely acute on chronic. 8. Uncontrolled blood sugars. Recc: -Tele -serial ecg's -Contineu asa/statiin -Resume BB/lasix -Continue ACEI/CCB -Contineu statin/lopid -Patient was scheduled for LHC with possible PTCA/stent this am but is refusing to undergo LHC, stating that she wants to wait for her son to arrive from [facility], prior to undergoing any procedures and states that she understands the risk of waiting including the chance for development of ongoing chest pain/CHF/arrhythmias or even . -would continue lovenox anticoagulation or possible change to heparin IV -trend cardiac enzymes Consultation Date/Type/Reason Admit Date/Time May 31, 2019 at 07:01 Initial Consult Date 05/31/19 Type of Consult Cardiology Reason for Consultation NSTEMI Requesting Provider: FELIX SAMUEL MD Date/Time of Note DATE: 06/01/19 TIME: 11:16 Exam/Review of Systems Vital Signs Vitals Vital Signs Date Temp Pulse Resp B/P (MAP) Pulse Ox O2 O2 Flow FiO2 Time Delivery Rate 06/01/19 98.2 94 20 164/77 94 Room Air 07:23 (106) Intake and Output 05/31/19 05/31/19 06/01/19 1515:00 23:00 07:00 IntakeIntake Total 500 ml BalanceBalance 500 ml Exam Exam Review of Systems: CONSTITUTIONAL: No fevers, chills. PULMONARY: No sob CARDIOVASCULAR: intermittent chest pain GASTROINTESTINAL: No nausea/vomiting. GENITOURINARY: No hematuria/dysuria. MUSCULOSKELETAL: No myagias/arthalgias. PSYCHIATRIC: The patient denies depression. NEUROLOGIC: No weakness Constitutional: alert Psych: no complaints Head: normocephalic ENMT: mucosa pink and moist Neck: supple, jvd Respiratory: diminished breath sounds Cardiovascular: regular rate and rhythm Gastrointestinal: soft, non-tender Musculoskeletal: muscle tone (normal) Extremities: edema (none) Neurological: other (No focal deficits) Labs Result Diagram: 06/01/19 0907 06/01/19 0907 Results 24hrs Laboratory Tests Test 05/31/19 13:09 05/31/19 18:10 05/31/19 18:44 05/31/19 22:19 Creatine Kinase 182 184 Creatine Kinase Index 3.3 2.9 Creatinine Kinase MB 5.97 H 5.33 H (Mass) Troponin I 3.210 *H 4.000 *H Bedside Glucose 250 H 176 Test 06/01/19 03:52 06/01/19 08:25 06/01/19 09:07 Bedside Glucose 200 220 White Blood Count 8.3 # Red Blood Count 4.66 Hemoglobin 13.1 Hematocrit 40.1 Mean Corpuscular Volume 86.1 Mean Corpuscular 28.1 L Hemoglobin Mean Corpuscular 32.7 Hemoglobin Concent Red Cell Distribution 13.3 Width Platelet Count 301 Mean Platelet Volume 10.5 H Immature Granulocytes % 0.600 H Neutrophils % 60.5 Lymphocytes % 31.2 Monocytes % 5.1 Eosinophils % 1.6 Basophils % 1.0 Nucleated Red Blood 0.0 Cells % Immature Granulocytes # 0.050 H Neutrophils # 5.0 Lymphocytes # 2.6 Monocytes # 0.4 Eosinophils # 0.1 Basophils # 0.1 Nucleated Red Blood 0.0 Cells # Prothrombin Time 12.4 Prothrombin Time Ratio 1.0 INR International 0.91 Normalized Ratio Activated 31.6 Partial Thromboplast Time Sodium Level 138 Potassium Level 4.6 Chloride Level 103 Carbon Dioxide Level 29 Anion Gap 6 Blood Urea Nitrogen 23 H Creatinine 0.80 Est Glomerular Filtrat > 60 Rate mL/min Glucose Level 225 H Hemoglobin A1c 11.8 H Calcium Level 9.0 Phosphorus Level 4.0 Magnesium Level 1.7 Triglycerides Level 254 H Cholesterol Level 225 H LDL Cholesterol, 124 Calculated HDL Cholesterol 50 Cholesterol/HDL Ratio 4.5 Free Thyroxine Index 4.21 H Thyroxine (T4) 11.0 Triiodothyronine (T3) 38.3 Uptake Medications Medications Current Medications Ondansetron HCl (Zofran Tab) 4 mg Q6H PRN PO NAUSEA/VOMITING; Start 05/31/19 at 12:30 Acetaminophen (Tylenol Tab) 650 mg Q6H PRN PO .PAIN 1-3 OR TEMP; Start 05/31/19 at 12:30 Docusate Sodium (Colace) 100 mg Q12H PRN PO .CONSTIPATION; Start 05/31/19 at 12:30 Magnesium Hydroxide (Milk Of Mag) 30 ml DAILY PRN PO .CONSTIPATION; Start 05/31/19 at 12:30 Bisacodyl (Dulcolax) 5 mg DAILY PRN PO .CONSTIPATION; Start 05/31/19 at 12:30 Famotidine (Pepcid Iv) 20 mg Q12 IV Last administered on 06/01/19at 08:28; Admin Dose 20 MG; Start 05/31/19 at 21:00 Atorvastatin Calcium (Lipitor) 40 mg QHS PO ; Start 05/31/19 at 21:00 Benazepril HCl (Lotensin) 40 mg DAILY PO Last administered on 05/31/19at 14:39; Admin Dose 40 MG; Start 05/31/19 at 14:00 Escitalopram Oxalate (Lexapro) 10 mg DAILY PO Last administered on 06/01/19at 08:29; Admin Dose 10 MG; Start 06/01/19 at 09:00 Gemfibrozil (Lopid) 600 mg BID PO Last administered on 05/31/19at 18:44; Admin Dose 600 MG; Start 05/31/19 at 14:30 Nifedipine (Procardia Xl) 30 mg BID PO Last administered on 06/01/19at 08:30; Admin Dose 30 MG; Start 05/31/19 at 14:00 Diagnostic Test (Pha) (Accu-Chek) 1 ea AC MEALS AND BEDTIME XX Last adminis tered on 06/01/19at 07:25; Admin Dose 1 EA; Start 05/31/19 at 17:25 Diagnostic Test (Pha) (Accu-Chek) 1 ea 02 XX ; Start 06/01/19 at 02:00 Insulin Glargine (Lantus) 17 units DAILY@2000 SC Last administered on 05/31/19at 22:26; Admin Dose 17 UNITS; Start 05/31/19 at 20:00 Insulin Aspart (Novolog Insulin Pen) NOVOLOG *MILD* ALGORITHM WITH MEALS BEDTIME SC Last administered on 06/01/19at 09:01; Admin Dose 2 UNIT; Start 05/31/19 at 17:55 Aspirin (Aspirin) 81 mg DAILY PO ; Start 06/01/19 at 09:00 Metoprolol Tartrate (Lopressor) 25 mg BID PO ; Start 05/31/19 at 21:00 Nitroglycerin (Nitroglycerin (Sl Tab) 0.4 Mg) 1 tab Q5M PRN SL ANGINA; Start 05/31/19 at 14:00 Furosemide (Lasix) 20 mg DAILY IV Last administered on 06/01/19at 08:27; Admin Dose 20 MG; Start 06/01/19 at 09:00 Enoxaparin Sodium (Lovenox) 110 mg Q12 SC Last administered on 06/01/19at 09:01; Admin Dose 110 MG; Start 05/31/19 at 14:00; Stop 06/01/19 at 13:59 Miscellaneous Information 1 ea NOTE XX ; Start 05/31/19 at 14:30 Glucose (Glutose) 15 gm Q15M PRN PO DECREASED GLUCOSE; Start 05/31/19 at 14:30 Glucose (Glutose) 22.5 gm Q15M PRN PO DECREASED GLUCOSE; Start 05/31/19 at 14:30 Dextrose (D50w Syringe) 25 ml Q15M PRN IV DECREASED GLUCOSE; Start 05/31/19 at 14:30 Dextrose (D50w Syringe) 50 ml Q15M PRN IV DECREASED GLUCOSE; Start 05/31/19 at 14:30 Glucagon (Glucagen) 1 mg Q15M PRN IM DECREASED GLUCOSE; Start 05/31/19 at 14:30 Glucose (Glutose) 15 gm Q15M PRN BUCCAL DECREASED GLUCOSE; Start 05/31/19 at 14:30 Pioglitazone HCl (Actos) 45 mg DAILY PO ; Start 05/31/19 at 17:30 Sodium Biphosphate/ Sodium Phosphate (Fleet Enema) 133 ml DAILY PRN [place] CONSTIPATION Last administered on 05/31/19at 20:19; Admin Dose 133 ML; Start 05/31/19 at 17:30 Simethicone (Mylicon) 80 mg Q6H PRN PO DISTENSION/GAS/BLOATING Last administered on 06/01/19at 08:56; Admin Dose 80 MG; Start 05/31/19 at 17:30 EMILIA CASTAÑEDA Jun 01, 2019 11:26
[2019-06-01 11:29] VITALS: BP 205/97; PULSE 94; RESP 20
[2019-06-01] MEDS ORDERED: LORAZEPAM 2 MG INJ IV PRN (14:00)
[2019-06-01] MEDS ORDERED: hydrALAzine 20 MG INJ IV PRN (14:00)
[2019-06-01 15:01] VITALS: BP 137/83; PULSE 87; RESP 20
--- NOTE | 2019-06-01 15:29 | RADRPT ---
Echocardiogram Report Patient Name: Kalina FISHERnt ID: [id number] : 1955 (64y 3m)Study Date: 06/01/2019 8:20:08 AM Gender: FAccession #: [id number] Tech: Rafi Yates [facility] Location: [facility] [place] Ref.Physician: FELIX SAMUEL Height(Cm): BSA: Weight(Kg): Quality: AdequateOrder Physician: FELIX SAMUEL Account #: Procedures: Echocardiographic Report: Transthoracic echocardiogram with complete 2D, M-Mode, and doppler examination. Indications: Congestive Heart Failure. Measurements: 2D/M Mode Doppler Measurement Value Normal Range Measurement Value Normal Range LVIDd 2D 3.9 [ 3.8 - 5.2 ] cm AV Peak Anthony 1.8 [ 100.0 - 170.0 ] cm/sec LVIDs 2D 2.5 [ 2.2 - 3.5 ] cm AV Peak PG 13.0 [ 2.0 - 9.0 ] mmHg LVPWd 2D 1.1 [ 0.6 - 0.9 ] cm LVOT Peak Anthony 1.0 [ 70.0 - 110.0 ] cm/sec IVSd 2D 1.4 [ 0.6 - 0.9 ] cm LVOT Peak PG 4.0 [ 2.0 - 6.0 ] mmHg AoR Diam 2D 2.4 [ 2.3 - 3.1 ] cm MV E Peak Anthony 1.0 [ 60.0 - 130.0 ] cm/sec EDV 2D 65.9 [ 46.0 - 106.0 ] ml MV A Peak Anthony 1.3 [ 100.0 - 120.0 ] cm/sec ESV 2D 21.7 [ 14.0 - 42.0 ] ml MV E/A 0.8 [ 0.8 - 1.5 ] ratio EF 2D 67.1 [ 54.0 - 74.0 ] percent MV Decel Time 158 [ 104 - 258 ] msec LA Dimen 2D 3.8 [ 2.7 - 3.8 ] cm Lat E` Anthony 0.1 [ 10.0 - 15.0 ] cm/sec Lateral E/E` 11.4 [ 1.0 - 2.0 ] ratio Med E` Anthony 0.1 cm/sec MV E/A 0.8 [ 0.8 - 1.5 ] ratio TR Peak Anthony 2.6 [ 100.0 - 280.0 ] cm/sec TR Peak PG 28.0 mmHg RVSP 36.0 [ 10.0 - 36.0 ] mmHg Findings: Left Ventricle: Normal left ventricular systolic function. Normal left ventricular cavity size. Moderate asymmetric septal hypertrophy. Ejection fraction is visually estimated at 55 %. Tissue Doppler/Mitral Doppler indices are consistent with impaired relaxation (Stage I diastolic dysfunction). These segments of the LV are hypokinetic anteroseptum mid segment. Right Ventricle: Normal right ventricular size. Normal right ventricular systolic function. Left Atrium: The left atrium is normal in size. Right Atrium: The right atrium is normal in size. Mitral Valve: Mild mitral leaflet calcification. Mild mitral annular calcification. Trace mitral regurgitation. Aortic Valve: No significant aortic stenosis or insufficiency. Aortic cusps appear mildly calcified. Tricuspid Valve: Normal appearance of the tricuspid valve. The estimated Peak RVSP is 36 mmHg. There is mild tricuspid regurgitation. Pericardium: Trivial pericardial effusion. There is an anterior echo free space consistent with epicardial fat pad. Aorta: Normal aortic root. IVC: Normal size with poor respiratory collapse consistent with elevated right atrial pressure. Conclusions: Normal left ventricular systolic function. Normal left ventricular cavity size. Moderate asymmetric septal hypertrophy. Ejection fraction is visually estimated at 55 %. Tissue Doppler/Mitral Doppler indices are consistent with impaired relaxation (Stage I diastolic dysfunction). These segments of the LV are hypokinetic anteroseptum mid segment. Mild mitral leaflet calcification. Mild mitral annular calcification. Trace mitral regurgitation. Normal appearance of the tricuspid valve. The estimated Peak RVSP is 36 mmHg. There is mild tricuspid regurgitation. Trivial pericardial effusion. There is an anterior echo free space consistent with epicardial fat pad. Electronically Signed By: Cheo Macias 2019-06-01 15:28:39 PDT
--- NOTE | 2019-06-01 15:54 | RADRPT ---
Vent Rate: 93 bpm RR Interval: 644 msec IN Interval: 160 msec QRS Duration: 84 msec QT Interval: 347 msec QTC Interval: 432 msec P-R-T [place]: 71 - 39 - 90 degrees Sinus rhythm...normal P axis, V-rate 50- 99 Nonspecific T abnormalities, lateral leads...T <-0.10mV, I aVL V5 V6 Electronically Signed By: Jamie Villarreal
[2019-06-01] MEDS ORDERED: HEPARIN 1000 UNITS/ML 10 ML INJ IV PRN (16:00)
[2019-06-01] MEDS ORDERED: HEPARIN 25000 UNITS/250 ML 250 ML IV SCH (16:00)
[2019-06-01] MEDS ORDERED: HEPARIN 1000 UNITS/ML 10 ML INJ IV ONE (16:00)
--- NOTE | 2019-06-01 16:17 | PN ---
Date/Time of Note Date/Time of Note DATE: 06/01/19 TIME: 16:14 Assessment/Plan VTE Prophylaxis Risk score (from Ns)>0 risk: 7 SCD applied (from Ns): Yes SCD contraindicated: low risk/ambulating Pharmacological prophylaxis: LMWH Lines/Catheters IV Catheter Type (from Nrsg): Peripheral IV Assessment/Plan Hospital Course 1. Chest pain with elevated troponin, likely secondary to non-ST elevation myocardial infarction. 2. Dyspnea on exertion, bilateral lower extremity edema, likely secondary to congestive heart failure exacerbation. 3. Diabetes, uncontrolled. 4. Hypertension, uncontrolled. 5. Hyperlipidemia. 6. Elevated BNP, assess for congestive heart failure. 7. Depression. 8. Rule out sleep apnea. Assessment/Plan -tele. -spoke to pt at the bedside, she needs second opinion , signed AMA -pt has primary Result Diagram: 06/01/1990606/01/19906 Results 24hrs Laboratory Tests Test 05/31/19 18:10 05/31/19 18:44 05/31/19 22:19 06/01/19 03:52 Creatine Kinase 184 Creatine Kinase Index 2.9 Creatinine Kinase MB 5.33 H (Mass) Troponin I 4.000 *H Bedside Glucose 250 H 176 200 Test 06/01/19 08:25 06/01/19 09:07 06/01/19 11:33 06/01/19 12:48 Bedside Glucose 220 White Blood Count 8.3 # Red Blood Count 4.66 Hemoglobin 13.1 Hematocrit 40.1 Mean Corpuscular Volume 86.1 Mean Corpuscular 28.1 L Hemoglobin Mean Corpuscular 32.7 Hemoglobin Concent Red Cell Distribution 13.3 Width Platelet Count 301 Mean Platelet Volume 10.5 H Immature Granulocytes % 0.600 H Neutrophils % 60.5 Lymphocytes % 31.2 Monocytes % 5.1 Eosinophils % 1.6 Basophils % 1.0 Nucleated Red Blood 0.0 Cells % Immature Granulocytes # 0.050 H Neutrophils # 5.0 Lymphocytes # 2.6 Monocytes # 0.4 Eosinophils # 0.1 Basophils # 0.1 Nucleated Red Blood 0.0 Cells # Prothrombin Time 12.4 12.4 Prothrombin Time Ratio 1.0 1.0 INR International 0.91 0.91 Normalized Ratio Activated 31.6 35.4 H Partial Thromboplast Time Sodium Level 138 Potassium Level 4.6 Chloride Level 103 Carbon Dioxide Level 29 Anion Gap 6 Blood Urea Nitrogen 23 H Creatinine 0.80 Est Glomerular Filtrat > 60 Rate mL/min Glucose Level 225 H Hemoglobin A1c 11.8 H Calcium Level 9.0 Phosphorus Level 4.0 Magnesium Level 1.7 Triglycerides Level 254 H Cholesterol Level 225 H LDL Cholesterol, 124 Calculated HDL Cholesterol 50 Cholesterol/HDL Ratio 4.5 Free Thyroxine Index 4.21 H Thyroxine (T4) 11.0 Triiodothyronine (T3) 38.3 Uptake Creatine Kinase 129 Creatine Kinase Index 1.2 Creatinine Kinase MB 1.61 (Mass) Troponin I 2.490 *H Test 06/01/19 12:50 Bedside Glucose 166 Subjective 24 Hr Interval Summary Free Text/Dictation improved Constitutional: no complaints Exam/Review of Systems Exam Vitals Vital Signs Date Temp Pulse Resp B/P (MAP) Pulse Ox O2 O2 Flow FiO2 Time Delivery Rate 06/01/19 97.8 87 20 137/83 92 Room Air 15:01 (101) Intake and Output 05/31/19 05/31/19 06/01/19 1515:00 23:00 07:00 IntakeIntake Total 500 ml BalanceBalance 500 ml Constitutional: alert, oriented Respiratory: diminished breath sounds Cardiovascular: regular rate and rhythm Gastrointestinal: soft Musculoskeletal: swelling (LE) Results Results 24hrs Laboratory Tests Test 05/31/19 18:10 05/31/19 18:44 05/31/19 22:19 06/01/19 03:52 Creatine Kinase 184 Creatine Kinase Index 2.9 Creatinine Kinase MB 5.33 H (Mass) Troponin I 4.000 *H Bedside Glucose 250 H 176 200 Test 06/01/19 08:25 06/01/19 09:07 06/01/19 11:33 06/01/19 12:48 Bedside Glucose 220 White Blood Count 8.3 # Red Blood Count 4.66 Hemoglobin 13.1 Hematocrit 40.1 Mean Corpuscular Volume 86.1 Mean Corpuscular 28.1 L Hemoglobin Mean Corpuscular 32.7 Hemoglobin Concent Red Cell Distribution 13.3 Width Platelet Count 301 Mean Platelet Volume 10.5 H Immature Granulocytes % 0.600 H Neutrophils % 60.5 Lymphocytes % 31.2 Monocytes % 5.1 Eosinophils % 1.6 Basophils % 1.0 Nucleated Red Blood 0.0 Cells % Immature Granulocytes # 0.050 H Neutrophils # 5.0 Lymphocytes # 2.6 Monocytes # 0.4 Eosinophils # 0.1 Basophils # 0.1 Nucleated Red Blood 0.0 Cells # Prothrombin Time 12.4 12.4 Prothrombin Time Ratio 1.0 1.0 INR International 0.91 0.91 Normalized Ratio Activated 31.6 35.4 H Partial Thromboplast Time Sodium Level 138 Potassium Level 4.6 Chloride Level 103 Carbon Dioxide Level 29 Anion Gap 6 Blood Urea Nitrogen 23 H Creatinine 0.80 Est Glomerular Filtrat > 60 Rate mL/min Glucose Level 225 H Hemoglobin A1c 11.8 H Calcium Level 9.0 Phosphorus Level 4.0 Magnesium Level 1.7 Triglycerides Level 254 H Cholesterol Level 225 H LDL Cholesterol, 124 Calculated HDL Cholesterol 50 Cholesterol/HDL Ratio 4.5 Free Thyroxine Index 4.21 H Thyroxine (T4) 11.0 Triiodothyronine (T3) 38.3 Uptake Creatine Kinase 129 Creatine Kinase Index 1.2 Creatinine Kinase MB 1.61 (Mass) Troponin I 2.490 *H Test 06/01/19 12:50 Bedside Glucose 166 Medications Medication Current Medications Ondansetron HCl (Zofran Tab) 4 mg Q6H PRN PO NAUSEA/VOMITING; Start 05/31/19 at 12:30 Acetaminophen (Tylenol Tab) 650 mg Q6H PRN PO .PAIN 1-3 OR TEMP; Start 05/31/19 at 12:30 Docusate Sodium (Colace) 100 mg Q12H PRN PO .CONSTIPATION; Start 05/31/19 at 12:30 Magnesium Hydroxide (Milk Of Mag) 30 ml DAILY PRN PO .CONSTIPATION; Start 05/31/19 at 12:30 Bisacodyl (Dulcolax) 5 mg DAILY PRN PO .CONSTIPATION; Start 05/31/19 at 12:30 Famotidine (Pepcid Iv) 20 mg Q12 IV Last administered on 06/01/19at 08:28; Admin Dose 20 MG; Start 05/31/19 at 21:00 Atorvastatin Calcium (Lipitor) 40 mg QHS PO ; Start 05/31/19 at 21:00 Benazepril HCl (Lotensin) 40 mg DAILY PO Last administered on 05/31/19at 14:39; Admin Dose 40 MG; Start 05/31/19 at 14:00 Escitalopram Oxalate (Lexapro) 10 mg DAILY PO Last administered on 06/01/19at 08:29; Admin Dose 10 MG; Start 06/01/19 at 09:00 Gemfibrozil (Lopid) 600 mg BID PO Last administered on 05/31/19at 18:44; Admin Dose 600 MG; Start 05/31/19 at 14:30 Nifedipine (Procardia Xl) 30 mg BID PO Last administered on 06/01/19at 08:30; Admin Dose 30 MG; Start 05/31/19 at 14:00 Diagnostic Test (Pha) (Accu-Chek) 1 ea AC MEALS AND BEDTIME XX Last administered on 06/01/19at 11:20; Admin Dose 1 EA; Start 05/31/19 at 17:25 Diagnostic Test (Pha) (Accu-Chek) 1 ea 02 XX ; Start 06/01/19 at 02:00 Insulin Glargine (Lantus) 17 units DAILY@2000 SC Last administered on 05/31/19at 22:26; Admin Dose 17 UNITS; Start 05/31/19 at 20:00 Insulin Aspart (Novolog Insulin Pen) NOVOLOG *MILD* ALGORITHM WITH MEALS BEDTIME SC Last administered on 06/01/19at 12:56; Admin Dose 1 UNIT; Start 05/31/19 at 17:55 Aspirin (Aspirin) 81 mg DAILY PO ; Start 06/01/19 at 09:00 Metoprolol Tartrate (Lopressor) 25 mg BID PO ; Start 05/31/19 at 21:00 Nitroglycerin (Nitroglycerin (Sl Tab) 0.4 Mg) 1 tab Q5M PRN SL ANGINA; Start 05/31/19 at 14:00 Furosemide (Lasix) 20 mg DAILY IV Last administered on 06/01/19at 08:27; Admin Dose 20 MG; Start 06/01/19 at 09:00 Miscellaneous Information 1 ea NOTE XX ; Start 05/31/19 at 14:30 Glucose (Glutose) 15 gm Q15M PRN PO DECREASED GLUCOSE; Start 05/31/19 at 14:30 Glucose (Glutose) 22.5 gm Q15M PRN PO DECREASED GLUCOSE; Start 05/31/19 at 14:30 Dextrose (D50w Syringe) 25 ml Q15M PRN IV DECREASED GLUCOSE; Start 05/31/19 at 14:30 Dextrose (D50w Syringe) 50 ml Q15M PRN IV DECREASED GLUCOSE; Start 05/31/19 at 14:30 Glucagon (Glucagen) 1 mg Q15M PRN IM DECREASED GLUCOSE; Start 05/31/19 at 14:30 Glucose (Glutose) 15 gm Q15M PRN BUCCAL DECREASED GLUCOSE; Start 05/31/19 at 14:30 Pioglitazone HCl (Actos) 45 mg DAILY PO ; Start 05/31/19 at 17:30 Sodium Biphosphate/ Sodium Phosphate (Fleet Enema) 133 ml DAILY PRN [place] CONSTIPATION Last administered on 05/31/19at 20:19; Admin Dose 133 ML; Start 05/31/19 at 17:30 Simethicone (Mylicon) 80 mg Q6H PRN PO DISTENSION/GAS/BLOATING Last administered on 06/01/19at 08:56; Admin Dose 80 MG; Start 05/31/19 at 17:30 Hydralazine HCl (Apresoline) 10 mg Q6H PRN IV SBP > 160; Start 06/01/19 at 14:00 Lorazepam (Ativan) 0.5 mg Q12 PRN IV Anxiety; Start 06/01/19 at 14:00 LUIZ HATFIELD NP Jun 01, 2019 16:17
--- NOTE | 2019-06-01 16:18 | DS ---
Date/Time of Note Date/Time of Note DATE: 06/01/19 TIME: 16:17 Discharge Summary Admission/Discharge Info Admit Date/Time May 31, 2019 at 07:01 Discharge Date/Time Consults cardiology dr Macias Hospital Course This is a 64-year-old female with a past medical history of hypertension, diabetes, hyperlipidemia, CHF, presented to the emergency department complaining of chest pain since last night. According to the patient, last night, when she was sleeping, all of a sudden, she noticed left-sided chest pain. She thought that it was gas pain; however, the pain was persistent and she came to the emergency department for further evaluation. The patient said that she has been very gassy. She was given nitroglycerin and aspirin prior to arrival. A ccording to the patient, she also has been having worsening lower extremity edema for the past few months and has been having decreased exercise tolerance. Denies any cough. Denies any fevers and chills. Denies any hematemesis, any melena, any blood per rectum. Denies any dizziness or any episodes of syncope. On arrival to ED, temperature showed 97.0, pulse 82, respirations 20, blood pressure 141/73, saturating 93%. BUN of 31, creatinine 0.99. White count of 10.8, hemoglobin 12.2. EKG showed no acute ST-T wave changes. BNP was mildly elevated to 432. Troponin was 0.525. Chest x-ray showed hypoventilatory chest, borderline cardiomegaly with mild pulmonary vascular congestion, and the patient received aspirin, nitroglycerin, Zofran and Bentyl and was admitted for further management. PAST MEDICAL HISTORY: 1. Diabetes, type 2, for many years. 2. Hypertension. 3. Hyperlipidemia. 4. Hypercholesterolemia. 5. Obesity. 6. Depression. 7. Insomnia. 8. Constipation. impr: 1. Chest pain with elevated troponin, likely secondary to non-ST elevation myocardial infarction. 2. Dyspnea on exertion, bilateral lower extremity edema, likely secondary to congestive heart failure exacerbation. 3. Diabetes, uncontrolled. 4. Hypertension, uncontrolled. 5. Hyperlipidemia. 6. Elevated BNP, assess for congestive heart failure. 7. Depression. 8. Rule out sleep apnea. During hospitalization patient was seen by Dr. Macias, cardiology consult. We followed his recommendations. Patient was on telemetry service. Pain was controlled. Hypoglycemic protocol is noted. We followed on trend cardiac enzymes, it went down. Patient was scheduled for LHC with possible PTCA/stent but is refusing to undergo LHC, stating that she wants to wait for her son to arrive from [facility], prior to undergoing any procedures and states that she understands the risk of waiting including the chance for development of ongoing chest pain/CHF/arrhythmias or even . Patient is clinically insignificantly improved. we offered her to continue Lovenox anticoagulation or possible change to heparin IV, but patient decides to leave AMA to see other specialists. Nursing distillery supervisor was called. I spoke to patient, try to show her the necessity of ongoing treatment, she refused. Plan of care was discussed with Dr. Renteria. Home Meds Reported Medications Insulin Glargine,Hum.rec.anlog (Basaglar Kwikpen U-100) 100 Unit/1 Ml Insuln.pen, 20 UNIT SC QAM, EA 05/31/19 Escitalopram Oxalate* (Escitalopram Oxalate*) 10 Mg Tablet, 10 MG PO DAILY, #30 TAB 05/31/19 Omeprazole* (Omeprazole*) 40 Mg Capsule.dr, 40 MG PO DAILY, #30 CAP 05/31/19 Pioglitazone Hcl* (Pioglitazone Hcl*) 45 Mg Tablet, 45 MG PO DAILY, TAB 05/31/19 Metformin Hcl* (Metformin Hcl*) 1,000 Mg Tablet, 1000 MG PO WITH BREAKFAST DINNE, #60 TAB 05/31/19 Meloxicam* (Mobic*) 15 Mg Tablet, 15 MG PO DAILY, #30 TAB 05/31/19 Glimepiride* (Glimepiride*) 4 Mg Tablet, 4 MG PO WITH BREAKFAST DINNE, TAB 05/31/19 Zolpidem Tartrate* (Zolpidem Tartrate*) 5 Mg Tablet, 5 MG PO QHS PRN for INSOMNIA, #30 TAB 05/31/19 Benazepril Hcl* (Benazepril Hcl*) 40 Mg Tablet, 40 MG PO DAILY, #30 TAB 05/31/19 Ranitidine Hcl* (Ranitidine Hcl*) 150 Mg Tablet, 150 MG PO Q12, #60 TAB 05/31/19 Furosemide* (Furosemide*) 40 Mg Tablet, 40 MG PO DAILY, TAB 05/31/19 Gemfibrozil* (Gemfibrozil*) 600 Mg Tablet, 600 MG PO BID, TAB 05/31/19 Hydroxyzine Hcl* (Hydroxyzine Hcl*) 10 Mg Tablet, 10 MG PO Q12 PRN for ITCHING, #30 TAB 05/31/19 Bisacodyl (Ducodyl) 5 Mg Tablet.dr, 5 MG PO BID 05/31/19 Atorvastatin* (Atorvastatin*) 40 Mg Tablet, 40 MG PO QHS, #30 TAB 05/31/19 Nifedipine* (Nifedipine ER*) 30 Mg Tablet.sa, 30 MG PO BID, TAB.SA 05/31/19 Enalapril Maleate* (Enalapril Maleate*) 20 Mg Tablet, 20 MG PO DAILY, TAB 05/31/19 Discontinued Reported Medications Metformin* (Glucophage*) 500 Mg Tab, 500 MG PO WITH BREAKFAST DINNE, #30 TAB 10/19/17 Discontinued Scripts Gabapentin* (Neurontin*) 600 Mg Tablet, 600 MG PO BID, #60 TAB Prov:MELANIE VALDES DO 06/29/18 Hydrocodone/Acetaminophen ([place] 10-325 Tablet) 1 Each Tablet, 1 TAB PO Q6H PRN for PAIN, #20 TAB Prov:MELANIE VALDES DO 06/29/18 Follow-up Plan pcp immediately. Primary Care Provider Harvinder Barillas Time spent on discharge: < 30 minutes Pending Labs Laboratory Tests Test 05/31/19 18:10 05/31/19 18:44 05/31/19 22:19 06/01/19 03:52 Creatine 184 Kinase IU/L (23-200) Creatine Kinase 2.9 Index Creatinine 5.33 Kinase MB ng/ml (0.0-2.4) (Mass) Troponin I 4.000 ng/ml (0.000-0. 120) Bedside 250 176 200 Glucose mg/dL (70-220) mg/dL (70-220) mg/dL (70-220) Test 06/01/19 08:25 06/01/19 09:07 06/01/19 11:33 06/01/19 12:48 Bedside 220 Glucose mg/dL (70-220) White Blood 8.3 Count 10^3/ul (4.8-1 0.8) Red Blood 4.66 Count 10^6/ul (4.20- 5.40) Hemoglobin 13.1 g/dl (12.0-16. 0) Hematocrit 40.1 % (37.0-47.0) Mean 86.1 Corpuscular fl (82.0-101.0 Volume ) Mean 28.1 Corpuscular pg (29.0-33.0) Hemoglobin Mean 32.7 Corpuscular g/dl (32.0-37. Hemoglobin Conc 0) ent Red Cell 13.3 Distribution % (11.5-14.5) Width Platelet Count 301 10^3/UL (140-4 15) Mean Platelet 10.5 Volume fl (7.4-10.4) Immature 0.600 Granulocytes % % (0.001-0.429 ) Neutrophils % 60.5 % (39.0-77.0) Lymphocytes % 31.2 % (15.0-51.0) Monocytes % 5.1 % (0.0-11.0) Eosinophils % 1.6 % (0.0-7.0) Basophils % 1.0 % (0.0-2.0) Nucleated Red 0.0 Blood Cells % /100WBC (0.0-0 .0) Immature 0.050 Granulocytes # 10^3/ul (0.0-0 .031) Neutrophils # 5.0 10^3/ul (1.6-7 .5) Lymphocytes # 2.6 10^3/ul (0.8-2 .9) Monocytes # 0.4 10^3/ul (0.3-0 .9) Eosinophils # 0.1 10^3/ul (0.0-0 .5) Basophils # 0.1 10^3/ul (0.0-0 .1) Nucleated Red 0.0 Blood Cells # 10^3/ul (0.0-0 .0) Prothrombin 12.4 12.4 Time Sec (11.9-14.9 Sec (11.9-14.9 ) ) Prothrombin 1.0 1.0 Time Ratio INR 0.91 0.91 International Normalized Rati o Activated 31.6 35.4 Partial Thrombo Sec (23.0-35.0 Sec (23.0-35.0 plast Time ) ) Sodium Level 138 mmol/L (135-14 4) Potassium 4.6 Level mmol/L (3.5-5. 1) Chloride Level 103 mmol/L (97-110 ) Carbon Dioxide 29 Level mmol/L (21-31) Anion Gap 6 (5-13) Blood Urea 23 Nitrogen mg/dl (7-20) Creatinine 0.80 mg/dl (0.44-1. 00) Est Glomerular > 60 Filtrat mL/min (>60) Rate mL/min Glucose Level 225 mg/dl (70-220) Hemoglobin A1c 11.8 % (0-5.9) Calcium Level 9.0 mg/dl (8.4-10. 2) Phosphorus 4.0 Level mg/dl (2.5-4.9 ) Magnesium 1.7 Level mg/dl (1.7-2.5 ) Triglycerides 254 Level mg/dl (0-149) Cholesterol 225 Level mg/dl (100-200 ) LDL 124 mg/dl Cholesterol, Calculated HDL 50 Cholesterol mg/dl (35-98) Cholesterol/HDL 4.5 RATIO Ratio Free Thyroxine 4.21 Index ug/ml (0.65-3. 89) Thyroxine (T4) 11.0 ug/dl (5.5-11. 0) Triiodothyronin 38.3 e (T3) Uptake % (23.5-40.5) Creatine 129 Kinase IU/L (23-200) Creatine Kinase 1.2 Index Creatinine 1.61 Kinase MB ng/ml (0.0-2.4 (Mass) ) Troponin I 2.490 ng/ml (0.000-0 .120) Test 06/01/19 12:50 Bedside 166 Glucose mg/dL (70-220) LUIZ HATFIELD NP Jun 01, 2019 16:18
== END 2019-06-01 16:30 | disposition left against medical advice (07) | DRG 280 ==
LOC: E/R 03:11 → TEL 07:01
PROVIDERS: ADMIT Internal Medicine Nephrology; ATTEND Internal Medicine Nephrology
DX: I21.4 Non-ST elevation (NSTEMI) myocardial infarction (principal); I50.43 Acute on chronic combined systolic (congestive) and diastolic (congestive) heart failure; E78.5 Hyperlipidemia, unspecified; E11.65 Type 2 diabetes mellitus with hyperglycemia; F32.9 Major depressive disorder, single episode, unspecified; I11.0 Hypertensive heart disease with heart failure; Z79.4 Long term (current) use of insulin
CPT/HCPCS: 36415; 71045; 80048; 80061; 81001; 82550; 82553; 82962; 83036; 83735; 83880; 84100; 84436; 84479; 84484; 85025; 85610; 85730; 93005; 93306; J1815; J1940